=== PATIENT | female | born 1955 | race Caucasian/White ===

== ENCOUNTER 2016-06-13 22:12 | Emergency (ER) | payer BC, MEDICARE ==
--- NOTE | 2016-06-14 19:21 | ER ---
ADMIT: 06/13/2016 RM/LOC: ER [facility] MR#: [id number] [address] [address] MARISELA AVALOS [address] [place] [address] Emergency Room Report SEX: F AGE: 61 : 1955 DATE: 06/13/2016 HISTORY OF PRESENT ILLNESS: The patient is a 61-year-old female with extensive past medical history, hypothyroidism, CHF, coronary artery disease, COPD, aortic stenosis, status post aortic valve replacement one week ago, status post in 90s for three months and history of tracheal injury per patient after surgery. The patient came to the ER with chief complaint of increasing swelling at the lower anterior neck just above the sternal notch since the surgery a week ago, and the patient states that she believes that it mildly increases pressure over the airways, but at the moment, she has no difficulty breathing. PHYSICAL EXAMINATION: The patient had normal O2 saturation. There is no respiratory distress. There were no drooling. The patient states since the surgery, she had the hoarsening of the voice, and on physical examination, there were no active bleeding, there were some suture, in the right anterior triangle of the neck. Per patient, it was the placement of the pacemaker device they needed during the heart surgery. While the patient here, we did not see any expanding hematoma acutely during the stay here. IMAGING DATA: CT scan of the neck soft tissue was done, which showed hematoma in the anterior midline neck above the sternal notch. There were some foci of the air in the hematoma mass also. ASSESSMENT AND PLAN: General Surgery was consulted. Dr. Harris believed that the patient should be transferred to [facility] the place that he had surgery for further followups and treatments. Dr. Bacon of the Cardiology also was consulted, who has been working in [facility] and he also advised that the patient should be immediately transferred. Case was discussed with the patient and the possibility of airway compromise, expanding hematoma, bleeding, disability or even was discussed with the patient. The patient states she had so many surgeries and she has so many ailments and prefers to go home and put some cold compress over it and she acknowledged that she understood the risk of and pain and disability and airway compromise. The patient has signed AMA paper. The patient was informed that she is more than welcome to come back at any time she needs and the hospital and emergency room is always very happy to help her. The patient acknowledged she understood it and the patient left the ER. Viki Ramirez MD/ andreina JOB #: [id number] CC: Marcial Mendez MD, Attending Physician
[2016-07-12] MEDS ORDERED: IMDUR DPS60 MG PO (10:20)
[2016-07-12] MEDS ORDERED: LIPITOR40 MG PO (10:20)
[2016-07-12] MEDS ORDERED: PRILOSEC DPS20 MG PO (10:20)
[2016-07-12] MEDS ORDERED: ASA CHILDREN'S81 MG PO (10:20)
[2016-07-12] MEDS ORDERED: MILK OF MAGNESI10 ML PO ×2 (10:21→10:36)
[2016-07-12] MEDS ORDERED: MAG-OX400 MG PO (10:21)
[2016-07-12] MEDS ORDERED: XANAX DPS0.5 MG PO (10:21)
[2016-07-12] MEDS ORDERED: MIRALAX PACKET17 GM PO (10:22)
[2016-07-12] MEDS ORDERED: DAILY MULTIPLE1 EACH PO (10:22)
[2016-07-12] MEDS ORDERED: GLUCOPHAGE-DPS500 MG PO (10:23)
[2016-07-12] MEDS ORDERED: DOLOPHINE DPS10 MG PO (10:23)
[2016-07-12] MEDS ORDERED: BYSTOLIC10 MG PO (10:23)
[2016-07-12] MEDS ORDERED: CYMBALTA60 MG PO (10:24)
[2016-07-12] MEDS ORDERED: COLACE-DPS100 MG PO (10:24)
[2016-07-12] MEDS ORDERED: ZYRTEC DPS10 MG PO (10:24)
[2016-07-12] MEDS ORDERED: SYNTHROID50 MCG PO (10:24)
[2016-07-12] MEDS ORDERED: FEOSOL-DPS325 MG PO (10:24)
[2016-07-12] MEDS ORDERED: ZESTORETIC 20/11 TAB PO (10:25)
[2016-07-12] MEDS ORDERED: LASIX DPS40 MG PO (10:25)
[2016-07-12] MEDS ORDERED: COUMADIN5 MG PO (10:25)
[2016-07-12] MEDS ORDERED: HUMULIN N100 UNIT/1 SQ (10:30)
[2016-07-12] MEDS ORDERED: LOTRISONE DPS45 GM TP (10:30)
[2016-07-12] MEDS ORDERED: PROVENTIL HFA6.7 GM IH (10:31)
[2016-07-12] MEDS ORDERED: [UNRECOGNIZED DRUG - OTHER] IH (10:32)
[2016-07-12] MEDS ORDERED: NITROSTAT0.4 MG SL (10:32)
[2016-07-12] MEDS ORDERED: OCEAN NASAL MIS45 ML NS (10:33)
[2016-07-12] MEDS ORDERED: MYCELEX TROCHE10 MG PO (10:33)
[2016-07-12] MEDS ORDERED: BENADRYL-DPS50 MG PO (10:34)
[2016-07-12] MEDS ORDERED: ANUSOL-HC30 GM PR (10:34)
[2016-07-12] MEDS ORDERED: MUCINEX600 MG PO (10:35)
[2016-07-12] MEDS ORDERED: DULCOLAX-DPS10 MG PR (10:36)
[2016-07-12] MEDS ORDERED: GLUCOSE4 GM PO (10:36)
[2016-07-12] MEDS ORDERED: FLEET ENEMA133 ML PR (10:37)
== END 2016-06-14 01:00 | disposition left against medical advice (07) ==
LOC: ER 22:12
DX: M96.840 Postprocedural hematoma of a musculoskeletal structure following a musculoskeletal system procedure (principal); E03.9 Hypothyroidism, unspecified; I50.9 Heart failure, unspecified; I25.10 Atherosclerotic heart disease of native coronary artery without angina pectoris; Z95.2 Presence of prosthetic heart valve; Y83.8 Other surgical procedures as the cause of abnormal reaction of the patient, or of later complication, without mention of misadventure at the time of the procedure

== ENCOUNTER 2016-07-09 23:07 | Observation (INO) | payer BC, MEDICARE ==
[~2016-07-09] VITALS: Ht 162.6 cm; Wt 79.3 kg
--- NOTE | 2016-07-10 19:18 | ER ---
ADMIT: 07/10/2016 RM/LOC: 430 [facility] MR#: [id number] [address] [address] MARISELA AVALOS [address] [place] [address] Emergency Room Report SEX: F AGE: 61 : 1955 DATE: 07/09/2016 HISTORY OF PRESENT ILLNESS: The patient is a 61-year-old female with extensive past medical history of cardiac problem, the patient had diabetes, hypertension, 2 times OK, 9 stents, aortic valve replacement and states that she needs the double bypass with 70% occlusion, but she assures she is not a good candidate for surgery and she could not survive after surgery. The patient came to the ER with chief complaint of burning sensation on the epigastric area and retrosternal area and also some pain around the front teeth. The patient states all her previous MIs started like this. The pain is started an hour before coming to the ER, and the patient took 3 nitroglycerin sublingual, which mildly to moderately decreased the pain, the patient also took some milk of magnesia, which also mildly changed the pain. In the ER, pain was resolved, the patient had EKG, which did not show any ST or T changes or arrhythmias or Q-waves, cardiac enzymes and troponin I were negative. The patient had another episodes of multiple 3 to 4 minutes pain for which she received morphine, repeat EKG did not show any acute changes. Chest x-ray was noncontributory, and the rest of lab works were noncontributory too. Considering the patient's high risk and previous medical condition, cardiac risk, the patient was admitted for observation and repeated serial cardiac enzymes per their discretion to rule out acute coronary syndrome. Rikki Ramirez MD/ andreina JOB #: [id number] CC: Geo Ceballos MD, Attending Physician Geo Ceballos MD, Family Physician
[2016-07-12] MEDS ORDERED: LIPITOR40 MG PO (10:20)
[2016-07-12] MEDS ORDERED: PRILOSEC DPS20 MG PO (10:20)
[2016-07-12] MEDS ORDERED: ASA CHILDREN'S81 MG PO (10:20)
[2016-07-12] MEDS ORDERED: IMDUR DPS60 MG PO (10:20)
[2016-07-12] MEDS ORDERED: MILK OF MAGNESI10 ML PO ×2 (10:21→10:36)
[2016-07-12] MEDS ORDERED: XANAX DPS0.5 MG PO (10:21)
[2016-07-12] MEDS ORDERED: MAG-OX400 MG PO (10:21)
[2016-07-12] MEDS ORDERED: DAILY MULTIPLE1 EACH PO (10:22)
[2016-07-12] MEDS ORDERED: MIRALAX PACKET17 GM PO (10:22)
[2016-07-12] MEDS ORDERED: GLUCOPHAGE-DPS500 MG PO (10:23)
[2016-07-12] MEDS ORDERED: DOLOPHINE DPS10 MG PO (10:23)
[2016-07-12] MEDS ORDERED: BYSTOLIC10 MG PO (10:23)
[2016-07-12] MEDS ORDERED: ZYRTEC DPS10 MG PO (10:24)
[2016-07-12] MEDS ORDERED: FEOSOL-DPS325 MG PO (10:24)
[2016-07-12] MEDS ORDERED: CYMBALTA60 MG PO (10:24)
[2016-07-12] MEDS ORDERED: COLACE-DPS100 MG PO (10:24)
[2016-07-12] MEDS ORDERED: SYNTHROID50 MCG PO (10:24)
[2016-07-12] MEDS ORDERED: ZESTORETIC 20/11 TAB PO (10:25)
[2016-07-12] MEDS ORDERED: COUMADIN5 MG PO (10:25)
[2016-07-12] MEDS ORDERED: LASIX DPS40 MG PO (10:25)
[2016-07-12] MEDS ORDERED: HUMULIN N100 UNIT/1 SQ (10:30)
[2016-07-12] MEDS ORDERED: LOTRISONE DPS45 GM TP (10:30)
[2016-07-12] MEDS ORDERED: PROVENTIL HFA6.7 GM IH (10:31)
[2016-07-12] MEDS ORDERED: [UNRECOGNIZED DRUG - OTHER] IH (10:32)
[2016-07-12] MEDS ORDERED: NITROSTAT0.4 MG SL (10:32)
[2016-07-12] MEDS ORDERED: OCEAN NASAL MIS45 ML NS (10:33)
[2016-07-12] MEDS ORDERED: MYCELEX TROCHE10 MG PO (10:33)
[2016-07-12] MEDS ORDERED: ANUSOL-HC30 GM PR (10:34)
[2016-07-12] MEDS ORDERED: BENADRYL-DPS50 MG PO (10:34)
[2016-07-12] MEDS ORDERED: MUCINEX600 MG PO (10:35)
[2016-07-12] MEDS ORDERED: DULCOLAX-DPS10 MG PR (10:36)
[2016-07-12] MEDS ORDERED: GLUCOSE4 GM PO (10:36)
[2016-07-12] MEDS ORDERED: FLEET ENEMA133 ML PR (10:37)
--- NOTE | 2016-07-22 12:39 | HP ---
ADMIT: 07/10/2016 RM/LOC: 430 [facility] MR#: [id number] [id number] [place], [place] [address] MARISELA DUARTE [address] [place] [address] History and Physical SEX: F AGE: 61 : 1955 DATE OF SERVICE: CHIEF COMPLAINT: Chest pain. HISTORY: Ms. Duarte is a 61-year-old woman with multiple medical problems including coronary artery disease, status post 9 stents and recent TAVR done on June 07, 2016. She presented to the ER yesterday with complaining of chest pain, which described as burning in nature, 8/10 in severity, located on the left side. It is on and off in severity and got worsen since Monday night. It was also associated with burning pain in her feet. She denies any nausea or vomiting, or any GI or complaints. She was initially on Plavix and later Effient, and was switched to Effient and was unable to tolerate the anti-platelet agents. She states that her symptoms resolved after taking Benadryl at home. Her cardiac enzymes x2 were negative and at present, she is very emotionally labile. PAST MEDICAL HISTORY: 1. Hypothyroidism. 2. CHF. 3. Coronary artery disease. 4. COPD, on home 2 L. 5. Aortic stenosis, status post TAPVR. 6. Pseudotumor cerebri, status post RAILROAD HAND shunt. 7. Pulmonary hypertension. 8. Diabetes mellitus. 9. Stout's disease. 10.Right L4-L5 radiculopathy. 11.Hypertension. 12.Possible aseptic necrosis of right hip. SOCIAL HISTORY: She lives at home with her . Denies any smoking, alcohol, or recreational drug use. FAMILY HISTORY: Significant for heart disease in her father. REVIEW OF SYSTEMS: A 10-point review of systems negative except as mentioned in the HPI. PHYSICAL EXAMINATION: VITAL SIGNS: Current temperature 97.4, heart rate 66, respirations 16, blood pressure 153/70, and 100% on 2 L. GENERAL: No acute distress. HEENT. Head, normocephalic and atraumatic. EOM was intact. There is soft tissue swelling in the anterior neck which is nontender to palpation. SKIN: Her face is flushed. CHEST: Clear to auscultation bilaterally. No wheezes, rales, or rhonchi. CARDIOVASCULAR: S1 and S2 heard. Regular rate and rhythm. ABDOMEN: Soft, nontender, and nondistended. Active bowel sounds. PSYCH: Normal affect. Depressed mood. Emotionally labile. SKIN: No rash noted on exposed skin. ADMIT: 07/10/2016 RM/LOC: 430 [facility] MR#: [id number] [address] [address] MARISELA DUARTE [address] [place] [address] History and Physical SEX: F AGE: 61 : 1955 DATA REVIEW: Her CBC shows white count of 8.9, hemoglobin 10.1, and platelets of 317. BMP shows creatinine of 1.9. Cardiac enzymes x2 is negative. ASSESSMENT AND PLAN: 1. Chest pain. Cardiac enzymes x2 has been negative. It is less likely cardiac in nature. She has history of recent TAVR and multiple stents in the past. I will consult Cardiology as they know her very well. 2. Dental pain, questionable referred pain. 3. Neck swelling. I will check a CT scan of the neck without contrast. Her last CAT scan in May showed gas and fluid collection just inferior to right thyroid lobe. 4. Questionable warfarin side effect. I will also check protein C and S. However, she does not have any signs of necrosis at this time. 5. Chronic obstructive pulmonary disease, on 2 L. 6. Coronary artery disease, status post multiple stents. 7. Pseudotumor cerebri, status post RAILROAD HAND shunt. Sherry Brand MD/ andreina JOB #: [id number] CC: Geo Ceballos, Attending Physician Geo Ceballos, Family Physician
--- NOTE | 2016-07-22 14:44 | CO ---
ADMIT: 07/10/2016 RM/LOC: 430 [facility] MR#: [id number] [address] [address] MARISELA AVALOS [address] [place] [address] Consultation SEX: F AGE: 61 : 1955 DATE OF CONSULTATION: 07/10/2016 ATTENDING PHYSICIAN: Geo Ceballos CONSULTING PHYSICIAN: Richy Cantu MD REASON FOR CONSULTATION: Neck pain, tooth pain, and chest burning. HISTORY OF PRESENT ILLNESS: Marisela is a pleasant 61-year-old female, who is well known to [facility] [[email or web address] She presented in February of 2016 with worsening shortness of breath and possible angina. She has a history of nine stents placed before and two myocardial infarctions. She was found to have severe aortic stenosis and was felt not to be a good surgical candidate. She underwent a transcatheter aortic valve replacement via the right innominate artery on June 07, 2016. She has had a hematoma in her anterior neck. She has had lots of complications afterwards. She initially was on Plavix and did not tolerate this and then was switched to Effient and did not tolerate that, she said she had a burning sensation on her face and neck when she took these medications. She then recently was started on Coumadin and started having the same symptoms last night. She said she was having teeth pain. She said everything was burning in her neck and mouth and into her upper chest. She was concerned, so presented to the emergency room at [facility]. Her EKG showed sinus rhythm with an interventricular conduction delay and no ST changes. Her cardiac enzymes were negative overnight. PAST MEDICAL HISTORY: 1. History of coronary artery disease, status post multiple prior stents. 2. History of severe aortic stenosis, status post transcatheter aortic valve replacement on June 07, 2016, with a #23 Oscar 3 valve. 3. History of diabetes. 4. History of hypothyroidism. 5. History of a pseudotumor cerebri, status post YEAST FERMENTATION ATTENDANT shunt. 6. History of pulmonary hypertension. 7. Diabetes. 8. Pierre's disease. 9. L4-L5 radiculopathy. 10.History of hypertension. 11.History of aseptic necrosis of the right hip. 12.History of COPD. ALLERGIES: NUMEROUS AND INCLUDE IODINE, PENICILLIN, DIPYRIDAMOLE, EPINEPHRINE, POVIDONE, CLINDAMYCIN, ADENOSINE, AMOXICILLIN. INTOLERANCES TO PLAVIX AND EFFIENT RECENTLY. SOCIAL HISTORY: She lives at home with her . She is a former smoker. Denies any alcohol use. Denies any drug use. She is on diabetic diet. FAMILY HISTORY: She has had strong family history of coronary artery disease. Her father had an IN at age 46 and . Two brothers with myocardial ADMIT: 07/10/2016 RM/LOC: 430 [facility] MR#: [id number] [address] [address] MARISELA AVALOS [address] [place] [address] Consultation SEX: F AGE: 61 : 1955 infarction and coronary artery disease. REVIEW OF SYSTEMS: GENERAL: Denies any fever or chills. She has had some weight loss after her TAVR. EYES: Denies any visual changes. ENT: Denies any hearing loss. RESPIRATORY: Denies hemoptysis. She does snore and has shortness of breath. CARDIAC: Denies any orthopnea. No syncope. She does have palpitations and had chest pain yesterday as described above. VASCULAR: Denies any claudication. No edema. GI: Denies any nausea, vomiting, or diarrhea. She does have history of reflux. : Denies hematuria. She has had difficulty emptying her bladder. ENDOCRINE: Denies tremors. She does have a goiter. SKIN: She has a suprasternal incision healed at the base of her neck. There is no erythema or tenderness. PSYCHIATRIC: Denies any hallucinations or depression. She does have some anxiety. DERM: Denies any rashes. She has a well-healed incision. MUSCULOSKELETAL: She denies any joint pain or myalgias. HEMATOLOGIC: Denies any anemia or bleeding. All other systems reviewed and negative. PHYSICAL EXAMINATION: VITAL SIGNS: Blood pressure 153/70, pulse 66, temperature 97.4, respirations 16, oxygen 100%. GENERAL: She is in no acute distress. She is alert and oriented, conversant. HEENT: Normocephalic, atraumatic. Extraocular muscles intact. NECK: There is some soft tissue swelling in the anterior neck. The incision is well healed. It is nontender. SKIN: She is flushed. No rashes. CHEST: Clear to auscultation bilaterally. HEART: Regular rate and rhythm. She has a 2/6 systolic ejection murmur heard at the right upper sternal border. ABDOMEN: Soft, nontender, and nondistended. EXTREMITIES: No cyanosis, clubbing, or edema. PSYCHIATRIC: She is alert, oriented, and appropriate. She is frustrated by not recovering from her surgery as quickly as she would like. DIAGNOSTIC DATA: Creatinine is 1.9. Troponin has been negative at less than 0.015. EKG showed nonspecific changes. INR was 1.7. IMPRESSION AND PLAN: 1. Atypical neck, teeth, and chest burning. Her cardiac enzymes have been negative. This appears to be unlikely to be any unstable angina or ADMIT: 07/10/2016 RM/LOC: 430 [facility] MR#: [id number] [address] [address] MARISELA AVALOS [address] [place] [address] Consultation SEX: F AGE: 61 : 1955 cardiac origin of her discomfort. She says this is similar to when she was reacting to the Plavix and Effient, and thinks it is the Coumadin now. At this point, we will stop her Coumadin and increase her aspirin dosage. We will touch base with the TAVR team in the morning to let them know. 2. Neck swelling. She had a recent CT scan that shows a small fluid collection, Dr. Brand would like to get another one. 3. Coronary artery disease as described above with multiple prior stents. 4. Pseudotumor cerebri. 5. Aortic stenosis, status post TAVR. Thank you for allowing us to participate in the care of your patient. We will follow along and amend our plan as her care progresses. Richy Cantu MD/ andreina JOB #: [id number] CC: Geo Ceballos, Attending Physician Geo Ceballos, Family Physician
== END 2016-07-11 15:14 | disposition home or self-care (01) ==
LOC: ER 23:07 → 4PCU 07-10 02:21
PROVIDERS: ADMIT Internal Medicine Infectious Disease
DX: R07.89 Other chest pain (principal); I25.10 Atherosclerotic heart disease of native coronary artery without angina pectoris; I35.0 Nonrheumatic aortic (valve) stenosis; I73.9 Peripheral vascular disease, unspecified; E11.65 Type 2 diabetes mellitus with hyperglycemia; J44.9 Chronic obstructive pulmonary disease, unspecified; E78.2 Mixed hyperlipidemia; I11.0 Hypertensive heart disease with heart failure; I50.9 Heart failure, unspecified; E03.9 Hypothyroidism, unspecified; M54.16 Radiculopathy, lumbar region; Z95.4 Presence of other heart-valve replacement

== ENCOUNTER → 2016-08-08 | Outpatient (CLI) | payer BC, MEDICARE ==
[~2016-08-08] MED LIST: ANUSOL-HC30 GM PR; ASA CHILDREN'S81 MG PO; BENADRYL-DPS50 MG PO; BYSTOLIC10 MG PO; COLACE-DPS100 MG PO; COUMADIN5 MG PO; CYMBALTA60 MG PO; DAILY MULTIPLE1 EACH PO; DOLOPHINE DPS10 MG PO; DULCOLAX-DPS10 MG PR; FEOSOL-DPS325 MG PO; FLEET ENEMA133 ML PR; GLUCOPHAGE-DPS500 MG PO; GLUCOSE4 GM PO; HUMULIN N100 UNIT/1 SQ; IMDUR DPS60 MG PO; LASIX DPS40 MG PO; LIPITOR40 MG PO; LOTRISONE DPS45 GM TP; MAG-OX400 MG PO; MILK OF MAGNESI10 ML PO; MIRALAX PACKET17 GM PO; MUCINEX600 MG PO; MYCELEX TROCHE10 MG PO; NITROSTAT0.4 MG SL; OCEAN NASAL MIS45 ML NS; PRILOSEC DPS20 MG PO; PROVENTIL HFA6.7 GM IH; SYNTHROID50 MCG PO; XANAX DPS0.5 MG PO; ZESTORETIC 20/11 TAB PO; ZYRTEC DPS10 MG PO; [UNRECOGNIZED DRUG - OTHER] IH
== END | disposition home or self-care (01) ==
LOC: RAD.S 10:37 → PTH.S 13:15 → RAD.S 13:25
DX: R22.1 Localized swelling, mass and lump, neck (principal); R13.10 Dysphagia, unspecified; M54.2 Cervicalgia; R07.9 Chest pain, unspecified; R06.02 Shortness of breath; Z53.9 Procedure and treatment not carried out, unspecified reason

== ENCOUNTER 2016-08-14 20:47 | Emergency (ER) | payer BC, MEDICARE ==
--- NOTE | 2016-08-15 12:04 | CO ---
ADMIT: 08/14/2016 RM/LOC: ER [facility] MR#: [id number] [address] [address] MARISELA AVALOS [address] [place] [address] Consultation SEX: F AGE: 61 : 1955 DATE OF CONSULTATION: 08/15/2016 ATTENDING PHYSICIAN: Marcial Mendez MD CONSULTING PHYSICIAN: Jim Fowler MD CHIEF COMPLAINT: Headaches. HISTORY OF PRESENT ILLNESS: Ms. Avalos is a 61-year-old woman who was diagnosed with pseudotumor cerebri in 1996. She has had multiple revisions of lumboperitoneal shunt, most recent in 2008. She states that she has thought that she was cured of it with her 100-pound weight loss that she had. She does not complain of the thunderclap headache. She complains of some headache, nausea, and vomiting. She states the headache is getting a little bit better and that the headache has been off and on. It has not been a crescendo of worsening headache over time as she had previously. She states she does not think this is related to her shunt and frankly she is starting to feel better and would prefer to go home. PAST MEDICAL HISTORY: Ms. Avalos is a very sick woman with an aortic valve replacement on June 07 of this year. She states she has not felt right since then. She has been into the ER four times since that point. She has coronary artery disease with multiple stenting. She has been progressively taken off anticoagulants for "reactions" to Effient and Plavix and Coumadin and subsequently has only been on aspirin other. PAST MEDICAL HISTORY: Hypothyroidism, congestive heart failure, COPD, pulmonary hypertension, diabetes mellitus, Wichita's disease, lumbar radiculopathy, hypertension, question of aseptic necrosis of the right hip. SOCIAL HISTORY: She lives with her . She does not smoke, drink, utilize drugs of abuse. FAMILY HISTORY: Heart disease. REVIEW OF SYSTEMS: Complete review of systems was obtained and annotated for pertinent positives and history of present illness. ALLERGIES: SHE HAD POOR RESPONSES TO ANTI-PLATELET AND ANTICOAGULANT AGENTS. IODINE, PENICILLIN, DIPYRIDAMOLE, EPINEPHRINE, POVIDONE, CLINDAMYCIN, ADENOSINE, AND AMOXICILLIN. MEDICATIONS: Medication list is charted in the ER, some blood thinners including aspirin. PHYSICAL EXAM: VITAL SIGNS: 130s over 60s, pulse in the 80s, respiring 12 times a minute. HEENT: She is an otherwise unhealthy-appearing 61-year-old woman with an atraumatic head. No scleral icterus. Clear oropharynx. ADMIT: 08/14/2016 RM/LOC: ER [facility] MR#: [id number] [facility] [address] [id number] MARISELA AVALOS [address] [place] [address] Consultation SEX: F AGE: 61 : 1955 NECK: Anterior neck wound from her heart surgery. ABDOMEN: Somewhat obese, although with 100-pound weight loss. She does have pannus. She has some type of what appears to be fairly large reservoir in the right flank. She states that they had put a reservoir there and then tacked the tubing up next to her liver, is what they told me when I examined her. She has incision in her lumbar spine. NEUROLOGICAL EXAMINATION: MENTAL STATUS: She is awake, alert, oriented x4. She has no dysphonia, dysarthria, or aphasia. Her affect is appropriate. Her thought content is normal. CRANIAL NERVES: Cranial nerves II through XII are individually tested and found to be intact without deficit. She has intact extraocular motility. No nystagmus. Pupils are equally round and reactive to light. MOTOR EXAM: Motor exam reveals 5/5 strength in bilateral upper and lower extremities. Deep tendon reflexes 2/4 in the upper and lower extremities. Sensation intact to light touch. Gait not tested. CEREBELLAR: She has no dysmetria. ASSESSMENT AND PLAN: Ms. Avalos is a 61-year-old woman with a lumboperitoneal shunt that as I track on the CT scan from April of this year, I do not see any catheter that appears to be within the abdomen. I think it is likely the shunt has been nonfunctional since at least that time, although it is more likely that has been nonfunctional for much longer time period than that. The patient states this does not really feel like a prior headache she has had from her pseudotumor. In either regard, pseudotumor cerebri is not generally an emergency, it causes headaches, but does not progress to coma in the way that tayo infantile hydrocephalus does. She has waxing and waning symptomatology, which is not consistent with her semiology for shunt malfunction headaches. She states her headaches are getting a little better since she has been here and her preference would be to follow up with Dr. Ceballos in the morning if she is not getting better. She said Dr. Ramirez did not seem to want to let her go home though. When Dr. Ramirez called me, he had made comment that there was an MRA that showed a possible aneurysm and a CTA that did not show an aneurysm that was done after the MRA. My experience with MRA versus CTA is that I would tend to believe the CTA more. Repeat MRA in 2016 reveals no changes to the likely fenestrated vert artery. He could certainly order a CTA at this point if he thinks that this is subarachnoid hemorrhage, although this was not a thunderclap headache and does not sound like especially in a patient, who probably does not have an aneurysm. If she is found to have, once will need to go to [place] to have that taken care of. I do not see any neurosurgical reason to admit her at this point. Jim Fowler MD/ andreina JOB #: [id number] CC: Marcial Mendez MD, Attending Physician ADMIT: 08/14/2016 RM/LOC: [facility] MR#: [id number] 2620 [facility] [address] [place] [id number] MARISELA AVALOS [address] [place] [address] Consultation SEX: F AGE: 61 : 1955 Geo Ceballos MD, Family Physician
--- NOTE | 2016-08-24 18:40 | ER ---
ADMIT: 08/14/2016 RM/LOC: ER [facility] MR#: [id number] [address] [address] MARISELA AVALOS [address] [place] [address] Emergency Room Report SEX: F AGE: 61 : 1955 DATE: 08/14/2016 HISTORY OF PRESENT ILLNESS: The patient is a 61-year-old female with a past medical history of diabetes, pseudotumor cerebri status post lumbar peritoneal shunt, transcatheter aortic valve replacement, who came to the ER with chief complaint of nausea and four episodes of vomiting and generalized headache since 6:00 p.m. Headache started gradually and increased in severity and right now is moderate to severe. The patient had similar headaches in the past, but some of them were related to shunt malfunction. The patient did not take anything for headache at home. The patient states while she was vomiting, she felt very weak and she fell and hit the head to counter, table. The patient denies any loss of consciousness and was ambulating since then. Incident happened at 6:00 p.m. PHYSICAL EXAMINATION: VITAL SIGNS: In the ER, patient has stable vitals. Blood pressure is moderately elevated. The patient was in [id number] distress. GENERAL: The patient was cooperative. HEENT: There is some ecchymosis on the left frontal area. The patient had no hemotympanum, no Carlos sign and no raccoon eyes. There is no depressed bone palpated. There is no septal hematoma in the nose. Pupils are equal and reactive to light bilaterally, normal extraocular movement. Motor and sensory exam is grossly normal, normal visual cruz bilaterally. CHEST: Clear. ABDOMEN: Soft. There are no skin rashes. There is a reservoir of the shunt on the right hip area which is bulging and upon pressure is refilled. The patient has soft neck, jolt test is negative on the neck. The patient had no meningismus signs. EMERGENCY DEPARTMENT COURSE: CT of the brain did not show any acute bleed or acute changes or hydrocephalus or hypovolemia of the ventricles. Pain was controlled. Dr. Fowler, neurosurgeon, was contacted and he examined the patient and discussed the case in detail with the patient and answered all her questions. Dr. Fowler advised that there is no need for further intervention, imaging or even admission. Dr. Fowler advised that the patient can be followed up by the primary doctor as needed. Pain was controlled. The patient was re-examined, did not develop any new symptoms and was discharged to home. The patient acknowledged she understood the plan and agreed with it. Rikki Ramirez MD/ andreina JOB #: [id number] CC: Marcial Mendez MD, Attending Physician Geo Ceballos MD, Family Physician
== END 2016-08-15 00:55 | disposition home or self-care (01) ==
LOC: ER 20:47
DX: S00.93XA Contusion of unspecified part of head, initial encounter (principal); W19.XXXA Unspecified fall, initial encounter; Y92.009 Unspecified place in unspecified non-institutional (private) residence as the place of occurrence of the external cause